=== PATIENT | male | born 1990 | race Caucasian/White ===

== ENCOUNTER → 2019-08-10 15:55 | Outpatient (CLI) | payer MEDICAID, SELFPAY ==
[2018-04-06 15:58] VITALS: BMI 36.9
[2019-08-13 16:07] LABS: HCV Quant. RNA PCR HCV Not Detected IU/mL (.); HEPATITIS B SURFACE AG Negative (Negative); Hepatitis B Core AB IgM Positive (Negative)
[2019-08-13 17:04] LABS: Hep C Antibodies >11.0 s/co ratio (0.0-0.9); Hepatitis A IgM Antibody Indeterminate (Negative)
== END ==
PROVIDERS: Family Provider Family Medicine; PCP Family Medicine
DX: F11.20 Opioid dependence, uncomplicated (principal)
CPT/HCPCS: 36415; 80074; 87522

== ENCOUNTER 2019-08-27 19:56 | Emergency (ER) | payer MEDICAID, SELFPAY ==
[2019-08-27 19:57] VITALS: BP 179/111; PULSE 109; RESP 15; TEMP 37.1; O2SAT 99; BMI 41.8
--- NOTE | 2019-08-27 20:32 | EKG12_ITS ---
Test Reason : DYSRHYTHMIA Blood Pressure : / mmHG Vent. Rate : 087 BPM Atrial Rate : 087 BPM P-R Int : 156 ms QRS Dur : 094 ms QT Int : 372 ms P-R-T Axes : 064 048 029 degrees QTc Int : 447 ms Normal sinus rhythm Normal ECG Confirmed by MELITON VARMA ([id number]), supervising film or videotape editor CHENTE TELLEZ ([id number] on 09/01/2019 2:57:44 PM Referred By: TYREE Confirmed By:MELITON VARMA
--- NOTE | 2019-08-27 20:32 | CT_ITS ---
STUDY: CT BRAIN WITHOUT CONTRAST REASON FOR EXAM: Male, 29 years old. Pleural effusion. Overdose. RADIATION DOSAGE (If Supplied By Facility): CTDIvol = ( 44.99 ) mGy, DLP = ( 796.11 ) mGycm TECHNIQUE: Transaxial CT imaging of the brain was performed without administration of intravenous contrast material. Individualized dose optimization techniques were used for this CT. COMPARISON: None. FINDINGS: There is no acute bleed or infarct. There are normal white matter tracts. The ventricles are normal in configuration. There is no hydrocephalus. The visualized paranasal sinuses are clear. The mastoid air cells are well aerated. There is no skull fracture. CT/Brain/Head without Contrast IMPRESSION: No acute intracranial abnormality. Electronically Signed: Suraj Bennett, at 21:38 EST Tel , Service support ,
--- NOTE | 2019-08-27 20:33 | ED.DCSUM_ITS ---
History of Present Illness Chief Complaint: Overdose Detail of Chief Complaint: Anxiety, syncope Informant: Patient, Family Narrative: Mabel of history is provided by mother at bedside. She states that patient went through drug rehab and has been home since July. He is currently on Suboxone. She dispenses his medication watches him take it every day. She states of the past several days has had increased anxiety and has been pacing. She is been giving him his Vistaril. Tonight the Vistaril did not seem to help. He reportedly had 2 syncopal episodes at home and mom called EMS the second time it happened. Patient is still intermittently confused. We will ask him a question and he will reply with a number. Other times he seems to be able to tell me his history such as name, birthdate, etc. - Past Medical History (1) Anxiety Status: Chronic (2) Depression Status: Chronic Past Medical History - Allergies and Home Meds Allergies/Adverse Reactions: Allergies No Known Allergies Allergy (Verified 08/27/19 20:01) Primary Care Physician: Lane Martin MD [Primary Care Provider] - Surgical History: no surgical history Lives: With Family Smoking Status: Smoker, status unknown - Family History Maternal Family History: Reports: - - Addiction to alcohol cocaine and opiates Paternal Family History: Reports: - - Addiction with marijuana cocaine and alcohol Review of Systems ROS: Unable to Obtain - Patient poor historian. When asked if he has pain he states everything hurts General: Denies: Chills, Fever Physical Exam Vital Signs/Narrative: Vital Signs Temp Pulse Resp BP Pulse Ox 08/27/19 19:57 98.7 F 109 H 15 179/111 H 99 Inital Vital Signs reviewed: Yes General: Well nourished, Well developed Head: Normocephalic ENT: Moist mucous membranes Neck: Supple Cardiovascular: Regular rate, Regular rhythm Respiratory: No distress, CTA bilaterally Abdomen: Soft, Nontender Extremities: Nontender Skin: Normal color, No rash Neurological: Alert, - - Patient intermittently oriented. He will occasionally answer questions with numbers and not able to describe what he is talking about. Diagnostic/Tx/Re-eval Impressions Brain CT 08/27/19 20:32 IMPRESSION: No acute intracranial abnormality. Electronically Signed: Suraj Bennett, at 21:38 EST Tel , Service support , 08/27/19 20:32 Brain/Head without Contrast [CT] Stat Laboratory Results 08/27/19 08/27/19 08/27/19 20:55 20:55 20:55 WBC 11.0 RBC 5.20 Hgb 15.4 Hct 44.5 MCV 85.6 MCH 29.6 MCHC 34.6 RDW Std Deviation 37.7 RDW Coeff of Rachel 12.1 Plt Count 225 MPV 9.6 Immature Gran % (Auto) 0.500 Neut % (Auto) 77.7 H Lymph % (Auto) 16.2 L [place] % (Auto) 4.6 Eos % (Auto) 0.5 Baso % (Auto) 0.5 Absolute Neuts (auto) 8.6 H Absolute Lymphs (auto) 1.78 Nucleated RBC % 0 Sodium 139 Potassium 3.3 L Chloride 106 Carbon Dioxide 28.0 Anion Gap 5 BUN 12 Creatinine 1.16 Estim Creat Clear Calc 101.27 Est GFR (MDRD) Af Amer 94 Est GFR (MDRD) Non-Af 78 BUN/Creatinine Ratio 10.3 Glucose 105 Calcium 9.5 Total Bilirubin 0.30 Direct Bilirubin 0.14 AST 27 ALT 42 Alkaline Phosphatase 56 Total Protein 8.4 H Albumin 4.6 Globulin 3.8 Urine Opiates Screen Urine Methadone Screen Ur Barbiturates Screen Ur Phencyclidine Scrn Ur Amphetamines Screen U Methamphetamin-MDMA U Benzodiazepines Scrn Urine Cocaine Screen U Cannabinoids Screen Ur Drug Screen Comment Ethyl Alcohol < 3.0 08/27/19 21:45 WBC RBC Hgb Hct MCV MCH MCHC RDW Std Deviation RDW Coeff of Rachel Plt Count MPV Immature Gran % (Auto) Neut % (Auto) Lymph % (Auto) [place] % (Auto) Eos % (Auto) Baso % (Auto) Absolute Neuts (auto) Absolute Lymphs (auto) Nucleated RBC % Sodium Potassium Chloride Carbon Dioxide Anion Gap BUN Creatinine Estim Creat Clear Calc Est GFR (MDRD) Af Amer Est GFR (MDRD) Non-Af BUN/Creatinine Ratio Glucose Calcium Total Bilirubin Direct Bilirubin AST ALT Alkaline Phosphatase Total Protein Albumin Globulin Urine Opiates Screen NEGATIVE Urine Methadone Screen NEGATIVE Ur Barbiturates Screen NEGATIVE Ur Phencyclidine Scrn NEGATIVE Ur Amphetamines Screen NEGATIVE U Methamphetamin-MDMA NEGATIVE U Benzodiazepines Scrn NEGATIVE Urine Cocaine Screen NEGATIVE U Cannabinoids Screen POSITIVE H Ur Drug Screen Comment Ethyl Alcohol - EKG Initial EKG Interpretation: Sinus Rhythm - Sinus 87 with no acute ischemia. - Medical Decision Making Patient was given IV fluids. On repeat evaluation he is resting comfortably. He states he feels back to his normal baseline. His blood pressure and heart rate are improved. I advised him at this time I recommend hospitalization overnight for observation secondary to 2 episodes of syncope. He is refusing admission at this time. He states that these attacks seem to happen between 5 and 8 PM. Right now he feels completely normal. I advised him that I cannot explain why he passed out, and cannot rule out a heart rhythm problem. I advised him that this could happen again and he could if he does have a heart rhythm problem. He voices understanding and wishes to go home. I encouraged him to return if symptoms worsen or he has any concerns. Patient as well as mother at bedside are in agreement with this plan. ED Disposition - Plan for ED Patient: Disposition: Home or Assisted Living Diagnosis: Syncope, Anxiety Instructions: SYNCOPE, Unk Cause Referrals: Lane Martin MD [Primary Care Provider] - As soon as possible
[2019-08-27] MEDS: 0.9% Normal Saline 1,000 ML 150 ML IV (20:48)
[2019-08-27 21:08] LABS: Absolute Lymphocyte Count 1.78 X10^3/uL (0.83-4.51); Absolute Neutrophil Count 8.6 X10^3/uL (2.0-7.7); Basophil# 0.05 X10^3/uL; Basophil% 0.5 % (0-1); Eosinophil# 0.05 X10^3/uL; Eosinophils% 0.5 % (0-5); Hematocrit 44.5 % (40-54); Hemoglobin 15.4 g/dL (13.0-16.5); Lymphocyte # 1.78 X10^3/ul (4.0); Lymphocyte % 16.2 % (19-41); Mean Corp Hgb Conc 34.6 g/dL (32-36); Mean Corpuscular Hgb 29.6 pg (27.0-32.0); Mean Corpuscular Volume 85.6 fL (80-94); Mean Platelet Vol. 9.6 fl (6.2-12.0); Monocyte# 0.51 X10^3/uL; Monocyte% 4.6 % (0-10); NRBC Flagged by Analyzer 0 % (0-5); Neutrophil # 8.55 X10^3/uL (2.7-7.7); Neutrophil % 77.7 % (47-70); Platelet Count 225 K/mm3 (150-450); RBC Distribution Width CV 12.1 % (11.6-14.6); RBC Distribution Width SD 37.7 fl (35.1-43.9)
[2019-08-27 21:11] VITALS: BP 145/83; PULSE 78; RESP 17; O2SAT 99
[2019-08-27 21:31] LABS: Alcohol, Blood (Medical)-Serum < 3.0 mg/dL
[2019-08-27 21:34] LABS: AST(SGOT) 27 U/L (15-37); Alanine Aminotransfer ALT/SGPT 42 U/L (16-61); Albumin, Serum 4.6 g/dL (3.2-5.0); Alkaline Phosphatase 56 U/L (45-117); Anion Gap 5 (5-15); BUN 12 mg/dL (7-18); BUN/Creat Ratio 10.3 RATIO (10-20); Bilirubin, Direct 0.14 mg/dL (0.00-0.30); Calcium,Total 9.5 mg/dL (8.5-10.1); Chloride 106 mmol/L (98-107); Creatinine, Serum 1.16 mg/dL (0.70-1.30); EST Glomerular Filtration Rate 78 mL/min (>60); Est Glom Filt Rate - Afr Amer 94 mL/min (>60); Estimated Creatinine Clearance 101.27 ml/min; Globulin 3.8 g/dL (2.2-4.2); Glucose 105 mg/dL (74-106); Potassium 3.3 mmol/L (3.5-5.1); Protein, Total 8.4 g/dL (6.4-8.2); Sodium Level 139 mmol/L (136-145)
[2019-08-27 22:03] VITALS: BP 126/64; PULSE 58; RESP 18; O2SAT 97
[2019-08-27 22:11] LABS: Amphetamine Urine VISTA NEGATIVE (<1000 ng/mL); Barbiturate Urine VISTA NEGATIVE (< 200 ng/mL); Benzodiazepine Urine VISTA NEGATIVE (< 200 ng/mL); Cocaine Urine VISTA NEGATIVE (< 300 ng/mL); Ecstacy Urine VISTA NEGATIVE (< 500 ng/mL); Methadone Urine VISTA NEGATIVE (< 300 ng/mL); PCP Urine VISTA NEGATIVE (< 25 ng/mL); THC Urine VISTA POSITIVE (< 50 ng/mL); Vista UDS pH Range 6
[2019-08-27 22:48] VITALS: BP 117/53; PULSE 62; RESP 18; O2SAT 96
== END 2019-08-27 22:50 | disposition home or self-care (01) ==
PROVIDERS: Emergency Provider Emergency Medicine; Family Provider Family Medicine; PCP Family Medicine
DX: R55 Syncope and collapse (principal); F41.9 Anxiety disorder, unspecified; R41.0 Disorientation, unspecified; F32.9 Major depressive disorder, single episode, unspecified; Z79.891 Long term (current) use of opiate analgesic; F17.200 Nicotine dependence, unspecified, uncomplicated
CPT/HCPCS: 70450; 80048; 80076; 80307; 80320; 85025; 93005; 96360; 96361; 99285; A4216; G0480